=== PATIENT | male | born 1960 | race Caucasian/White ===

== ENCOUNTER 2017-09-28 10:59 | Emergency (ER) | payer OTHER, SELFPAY ==
[2017-09-28 11:00] VITALS: BP 159/75; RESP 16; TEMP 37.2; O2SAT 96; BMI 36.9
--- NOTE | 2017-09-28 11:07 | XR_ITS ---
XR chest 2V COMPARISON: None HISTORY: Persistent cough TECHNIQUE: PA and lateral chest FINDINGS: Borderline emphysematous changes seen with hyperexpansion of the lung rucker. There is no infiltrate. Cardiac size is normal and the vascularity is normal. There are calcified right tracheal and subcarinal nodes. IMPRESSION: Old granulomatous disease, no acute chest pathology noted
--- NOTE | 2017-09-28 11:08 | HMH.EDGENADL ---
ED Disposition Clinical Impression: Cervical radicular pain Disposition: Home, Self-Care Condition on Discharge: Good Instructions: DI for Cervical Radiculopathy Additional Instructions: Additional instructions for NECK PAIN: See your physician as soon as possible for further evaluation. Return immediately if neck pain becomes intolerable, or if fever, numbness or weakness of your arms or legs, loss of control of your bowels or bladder. Additional instructions for CHEST PAIN: See your physician as soon as possible for further evaluation. Return immediately if worsening chest pain, vomiting, shortness of breath, fever, coughing of blood. Prescriptions: Hydrocod/Acet 5/325 mg [[place] 5/325mg tablet] 1 tab PO Q6HP PRN #10 tab PRN Reason: Pain Per Pt (Boiling Off Winder Use Only) predniSONE [Prednisone 20mg Tab] 20 mg PO BID #10 tab Referrals: Falguni Trejo PA [Primary Care Provider] - - Critical Care Critical Care Time: No Attestation: On , the high probability of a clinically significant, sudden or life threatening deterioration of the following system(s) required my full and direct attention, intervention and personal management. The time I documented below is in addition to time spent performing reported procedures but includes the following listed in this critical care notation. Medical Decision Making Vital Signs: 09/28/17 11:00 09/28/17 12:16 Temperature 98.9 F Temperature Source Oral Pulse Rate 63 Respiratory Rate 16 18 Blood Pressure 111/70 Blood Pressure [Right Arm] 159/75 Blood Pressure Mean [Right Arm] 103 Blood Pressure Source Automatic Cuff Blood Pressure Source [Right Arm] Automatic Cuff Blood Pressure Position Sitting Blood Pressure Position [Right Arm] Sitting 02 Sat by Pulse Oximetry 96 Oxygen Delivery Method Room Air Room Air - Lab Data Lab results reviewed: Yes: I reviewed the patient's lab results. Lab Results 09/28/17 11:10: WBC 10.5, RBC 5.13, Hgb 14.6, Hct 46.9, MCV 91.4, MCH 28.5, MCHC 31.2 L, RDW 13.9, Plt Count 240, MPV 6.7 L, Neut % (Auto) 79.3, Lymph % (Auto) 10.8, [place] % (Auto) 6.7, Eos % (Auto) 2.7, Baso % (Auto) 0.5, Neut # (Auto) 8.4 H, Lymph # (Auto) 1.1, [place] # (Auto) 0.7, Eos # (Auto) 0.3, Baso # (Auto) 0.1 09/28/17 11:10: Sodium 140, Potassium 4.3, Chloride 106, Carbon Dioxide 29, Anion Gap 9.3, BUN 13, Creatinine 0.98, Estimated Creat Clear 167, Estimated GFR 78, Est GFR ( Amer) 95, Glucose 106, Calcium 8.9, Total Bilirubin 0.3, AST 16, ALT 24, Alkaline Phosphatase 80, Total Creatine Kinase 56, CK-MB (CK-2) 1.2, CK-MB (CK-2) Rel Index 2.1, Troponin I < 0.02, Total Protein 7.2, Albumin 3.4, Globulin 3.8 H, Albumin/Globulin Ratio 0.9 L 09/28/17 11:40: PT 28.2 H, INR 2.59 H Result diagrams: 09/28/17 11:10 09/28/17 11:10 Orders (Tests/Meds): ED MEDICATIONS Discontinued Medications Generic Name Dose Route Start Last Admin Trade Name Freq PRN Reason Stop Dose Admin Methylprednisolone Sodium Succinate 125 mg 09/28/17 11:23 09/28/17 11:37 Solu-Medrol 125mg/2ml Vial IV 09/28/17 11:24 125 mg ONCE ONE Administration Morphine Sulfate 4 mg 09/28/17 11:23 09/28/17 11:37 Morphine 4mg/Ml Syringe IV 09/28/17 11:24 4 mg ONCE ONE Administration Ondansetron HCl 4 mg 09/28/17 11:23 09/28/17 11:37 Zofran 4mg/2ml Vial IV 09/28/17 11:24 4 mg ONCE ONE Administration - Radiology Data #1 Image(s): Chest Image Reviewed: Yes I reviewed the patient's radiology results Preliminary Findings: Normal/NAD calcified hilar nodes - ECG Data Tracing #1 EKG interpreted by Naga Carreno MD: Rhythm: Atrial fibrillation Rate: 89 [place]: normal Ectopy: Unifocal PVCs versus aberrant conduction and a trigeminal frequency Conduction: normal ST Segment Changes: none T Wave Changes: none Q Waves: none No evidence of acute ischemia or injury No prior EKGs available for comparison - Jose Cruz Inquiry Pt receivi
[2017-09-28 11:31] LABS: Basophils # 0.1 K/mm3 (0-0.2); Basophils % 0.5 % (0.1-2.0); Eosinophils # 0.3 K/mm3 (0.0-0.4); Eosinophils % 2.7 % (0.1-12.0); Hematocrit 46.9 % (42.0-52.0); Hemoglobin 14.6 g/dL (14.1-18.0); Lymphocytes # 1.1 K/mm3 (0.7-4.5); Lymphocytes % 10.8 K/mm3 (10-50); Mean Corpuscular HGB Conc 31.2 g/dL (31.8-35.4); Mean Corpuscular Hemoglobin 28.5 pg (27.0-31.2); Mean Corpuscular Volume 91.4 fl (80-94); Mean Platelet Volume 6.7 fl (7.4-10.4); Monocytes # 0.7 K/mm3 (0.1-1.0); Monocytes % 6.7 % (1.7-9.3); Neutrophils # 8.4 K/mm3 (1.8-7.8); Neutrophils % 79.3 % (37.0-80.0); Platelet Count 240 K/mm3 (142-424); Red Blood Count 5.13 M/mm3 (4.60-6.20); Red Cell Distribution Width 13.9 % (11.5-17.5); White Blood Count 10.5 K/mm3 (4.8-10.8)
[2017-09-28 11:52] LABS: Alanine Aminotransferase 24 U/L (12-78); Albumin Level 3.4 gm/dL (3.4-5.0); Albumin/Globulin Ratio 0.9 (1.1-1.8); Alkaline Phosphatase 80 U/L (46-116); Anion Gap 9.3 mEq/L (5-15); Aspartate Amino Transferase 16 U/L (15-37); Bilirubin,Total 0.3 mg/dL (0.2-1.0); Blood Urea Nitrogen 13 mg/dL (7-18); CKMB Relative Index 2.1 U/L (0-4.0); Calcium 8.9 mg/dL (8.5-10.1); Carbon Dioxide 29 mmol/L (21.0-32.0); Chloride 106 mmol/L (98-107); Creatine Kinase 56 U/L (39-308); Creatine Kinase MB 1.2 mg/ml (0.0-3.6); Creatinine Clearance Estimated 167 mL/min (0-300); Creatinine,Serum 0.98 mg/dL (0.70-1.30); Estimated Glomerular Filt Rate 78 ml/min (>60); GFR (African American) 95 ML/MIN (>60); Globulin 3.8 gm/dl (1.3-3.2); Glucose 106 mg/dL (74-106); Potassium 4.3 mmoL/L (3.5-5.1); Sodium 140 mmol/L (136-145); Total Protein,Serum 7.2 gm/dL (6.4-8.2); Troponin I < 0.02 ng/ml (0.00-0.06)
[2017-09-28 11:55] LABS: INR 2.59 (0.9-1.1); Prothrombin Time 28.2 seconds (9.4-11.8)
[2017-09-28 12:16] VITALS: BP 111/70; PULSE 63; RESP 18; O2SAT 98
== END 2017-09-28 12:23 | disposition home or self-care (01) ==
PROVIDERS: Emergency Provider Emergency Medicine; PCP Physician Assistant
DX: M54.12 Radiculopathy, cervical region (principal); I48.91 Unspecified atrial fibrillation; J44.9 Chronic obstructive pulmonary disease, unspecified; Z79.01 Long term (current) use of anticoagulants; F41.9 Anxiety disorder, unspecified; F17.210 Nicotine dependence, cigarettes, uncomplicated
CPT/HCPCS: 71046; 80053; 82550; 82553; 84484; 85025; 85610; 93005; 93041; 96374; 96375; 99284; J2405

== ENCOUNTER → 2017-10-10 09:32 | Outpatient (CLI) | payer OTHER, SELFPAY ==
--- NOTE | 2017-10-10 09:36 | XR_ITS ---
EXAM: XR cervical spine 4V HISTORY: ITS.REASON: Neck pain ORDERING PHYSICIAN: REILLY Santos PATIENT AGE: 57 years COMPARISON: None FINDINGS: There is normal alignment. Moderate to severe degenerative disc disease is present from C3 to C7 small endplate osteophytes worse at C3-C4 and C6-C7. Mild left foraminal narrowing noted at C3-C4 and mild right foraminal narrowing at C3-C4. No fracture or dislocation. No lytic or blastic change. IMPRESSION: Cervical spondylosis with degenerative disc disease along with foraminal narrowing on the left at C3-C4 and to a lesser degree on the right at C3-C4
--- NOTE | 2017-10-10 09:36 | XR_ITS ---
EXAM: XR lumbar spine min 4V HISTORY: ITS.REASON: Low back pain ORDERING PHYSICIAN: REILLY Santos PATIENT AGE: 57 years COMPARISON: None FINDINGS: There is minimal lumbar curvature convex right. Degenerative disc disease is present at L5-S1 is straightening of the lumbar lordosis. There are mild facet arthritic changes at L4-L5 and L5-S1. Incidental abdominal aortic calcifications are present. There is a mild amount retained colonic feces. IMPRESSION: Lumbar spondylosis with degenerative disc disease and facet arthritic changes described above.
== END ==
PROVIDERS: PCP Physician Assistant; Visit Provider Physician Assistant
DX: M48.02 Spinal stenosis, cervical region (principal); M51.16 Intervertebral disc disorders with radiculopathy, lumbar region
CPT/HCPCS: 72050; 72110

== ENCOUNTER → 2017-10-11 09:48 | Outpatient (CLI) | payer OTHER, SELFPAY ==
--- NOTE | 2017-10-11 09:50 | MR_ITS ---
MR lumbar spine wo con HISTORY: Low back pain, lumbar stenosis, altered gait, right-sided low back pain and numbness in the right foot ORDERING PHYSICIAN: REILLY Santos PATIENT AGE: 57 years COMPARISON: Radiograph of 10/10/2017 TECHNIQUE: Standard multiplanar multiecho sequences are performed without contrast. 3-D MIP and myelographic images are also rendered and reviewed FINDINGS: There is normal alignment. The spinal cord ends at the L1 level. Multilevel lumbar spondylosis is present as outlined below. T12-L1: Mild disc desiccation. L1-L2: Mild facet and ligamentum hypertrophy. L2-L3: Mild disc desiccation with minimal bulging disc and 2 mm anterolisthesis of L2 with facet and ligamentum hypertrophy with bilateral lateral recess and mild bilateral foraminal narrowing. Mild narrowing of the canal. There is a rounded 15 mm T2 hyperintensity at L2 vertebral body habitus somewhat stippled appearance likely related to a hemangioma L3-L4: Mild bulging disc with mild facet and ligamentum flavum hypertrophy with mild bilateral foraminal narrowing. The disc is slightly eccentric toward the right. L4-L5: Mild bulging disc along with facet and ligamentum flavum hypertrophy with bilateral foraminal narrowing slightly greater on the right. L5-S1: Degenerative disc disease with bulging disc. There is mild retrolisthesis of L5 x 5 mm. There is facet and ligamentum flavum hypertrophy with moderate bilateral foraminal narrowing slightly greater on the left. The bulging disc is slightly eccentric toward the left. No disc herniation evident. IMPRESSION: Multilevel lumbar spondylosis with degenerative disc disease, bulging disc, and facet and ligamentum flavum hypertrophy with foraminal narrowing and lateral recess narrowing as described above. Please see above for detailed description at each level. There is mild narrowing of the canal at L2-L3 No disc herniation
--- NOTE | 2017-10-11 09:50 | MR_ITS ---
MR cervical spine wo con, MR 3-d myelogram/MRCP HISTORY: Neck pain, arm numbness, limited range of motion of neck, shooting pain down left side ORDERING PHYSICIAN: REILLY Santos PATIENT AGE: 57 years COMPARISON: Cervical spine of 10/10/2017 TECHNIQUE: Standard multiplanar multiecho sequences are performed without contrast. 3-D MIP and myelographic images are also rendered and reviewed FINDINGS: The craniocervical junction has an unremarkable appearance. C2-C3: Unremarkable. C3-C4: Severe degenerative disc disease with bulging discs with endplate osteophytes slightly eccentric toward the right with moderate right foraminal narrowing and mild right lateral recess narrowing. C4-C5: Degenerative disc disease with bulging disc and small broad-based central disc protrusion with borderline canal stenosis. No cord impingement. C5-C6: Degenerative disc disease with mild bulging disc C6-C7: Degenerative disc disease with bulging disc and endplate osteophytes somewhat eccentric to the right with right-sided foraminal narrowing. C7-T1 unremarkable. IMPRESSION: Multilevel lumbar spondylosis with degenerative disc disease, bulging disc, and endplate osteophytes with foraminal narrowing. Please see above for detailed description at each level. No disc herniation or central canal stenosis
== END ==
PROVIDERS: PCP Physician Assistant; Visit Provider Physician Assistant
DX: M48.02 Spinal stenosis, cervical region (principal); M51.16 Intervertebral disc disorders with radiculopathy, lumbar region; Z98.1 Arthrodesis status
CPT/HCPCS: 72141; 72148; 76376

== ENCOUNTER 2017-10-14 13:31 | Outpatient (RCR) | payer OTHER, SELFPAY ==
--- NOTE | 2017-10-14 15:28 | HMH.PTOPEV ---
Rehab Outpatient Evaluation Rehab OP Evaluation Start: 10/14/17 13:40 Freq: Status: Active Protocol: Document 10/14/17 14:40 PHORNE (Rec: 10/14/17 15:27 PHORNE [id number]) Electronically Signed By Yeison Kaye, PT 10/14/17 14:40 Outpatient Therapy Subjective History Subjective History Pt presents with c/o pain in left side low back x > 20 yrs with left LE symptoms to knee distally and now with sudden, insidious onset of neck pain ~ 2-3 wks ago. Pt reports he has had 3 similar episodes in the past that were sudden onset, sharp pain that took my breath and required ED visits. He reports feeling less pain over the past 2 days , but continues to have difficulty moving his head. PMH: 2 lumbar spine surgeries with possible partial discectomy at L5, A-fib, HTN, gastric ulcers, COPD, PTSD. Chief Complaint Pain Stiff Symptom Type Ache Sharp Dull Stabbing Symptoms Relieved By Rest/Positioning Symptoms Aggravated By Standing Bending/Stooping Physical Activity Walking Prior Functional Limitations None Current Functional Limitations Reaching Lifting Sleeping Walking Bending/Stooping Symptom Description Intermittent Activity Dependent Level of pain today (0-10) 0 Pain scale - at its worst (0-10) 10 Cervical Eval Palpation Cervical Muscles R Cervical Paraspinal L Cervical Paraspinal Cervical/Thoracic Palpation Findings Tenderness Posture Head/C-Spine Posture Sitting Position Flexed Flexibility Deficits Upper Trapezius Muscle Length (L) Moderate Tightness Levaetor Scapulae Muscle Length (L) Moderate Tightness Passive Joint Mobility Cervical PIVM Dec: R C2/3 L C2/3 R C3/4 L C3/4 R C4/5
== END 2017-10-14 13:32 | disposition home or self-care (01) ==
LOC: PT 13:31
PROVIDERS: PCP Physician Assistant; Visit Provider Emergency Medicine
DX: M48.02 Spinal stenosis, cervical region (principal); M51.16 Intervertebral disc disorders with radiculopathy, lumbar region; Z98.1 Arthrodesis status

== ENCOUNTER → 2017-10-28 08:26 | Outpatient (CLI) | payer OTHER, SELFPAY ==
--- NOTE | 2017-10-28 16:17 | XR_ITS ---
XR foot LT min 3V HISTORY: ITS.REASON: B/L FOOT PAIN ORDERING PHYSICIAN: Felicia Alvarez DPM PATIENT AGE: 57 years COMPARISON: None FINDINGS: Weightbearing views are performed. No fracture or dislocation. No lytic or blastic change. There is normal mineralization.. There are mild osteoarthritic changes of the first metatarsophalangeal joint. There is moderate pes planus with mild anterior subluxation of the navicular on the talus with hypertrophic changes of the talonavicular joint. IMPRESSION: Pes planus with hypertrophic change at the talonavicular joint Osteoarthritic change first metatarsophalangeal joint
--- NOTE | 2017-10-28 16:17 | XR_ITS ---
XR foot RT min 3V HISTORY: ITS.REASON: CHRONIC RIGHT FOOT WOUND, SKIN CHANGES, B/L FOOT PAIN ORDERING PHYSICIAN: Felicia Alvarez DPM PATIENT AGE: 57 years COMPARISON: None FINDINGS: Weightbearing views are performed. There is moderate pes planus with mild anterior subluxation of the navicular on the talus and hypertrophic changes of the anterior distal talus. No fracture or dislocation is evident. Flexion deformity involves the second through fourth toes. No obvious erosive change evident. IMPRESSION: Pes planus with flexion deformity of the second through fourth toes
== END ==
PROVIDERS: Visit Provider Podiatrist
DX: M79.671 Pain in right foot (principal); M79.672 Pain in left foot; M19.072 Primary osteoarthritis, left ankle and foot; M19.071 Primary osteoarthritis, right ankle and foot; L97.512 Non-pressure chronic ulcer of other part of right foot with fat layer exposed
CPT/HCPCS: 36415; 73630; 83036

== ENCOUNTER 2017-10-30 09:17 | Outpatient (CLI) | payer OTHER, SELFPAY ==
[2017-10-30 15:10] LABS: PHA INR Fingerstick 2.3 (0.9-1.1)
== END 2017-10-30 15:18 | disposition home or self-care (01) ==
LOC: ACC 09:18
PROVIDERS: PCP Physician Assistant; Visit Provider Physician Assistant
DX: I48.91 Unspecified atrial fibrillation (principal)
CPT/HCPCS: 85610

== ENCOUNTER → 2017-11-05 11:21 | Outpatient (REF) | payer OTHER, SELFPAY ==
[2017-11-05 20:22] LABS: Amphetamine/Metha Screen,Urine Negative ng/mL (<1000); Barbiturates Screen,Urine Negative ng/mL (<200); Benzodiazepines Screen,Urine Negative ng/mL (200); Cannabinoid Screen,Urine Negative ng/mL (<50); Cocaine Screen,Urine Negative ng/g (<300); Methadone Screen,Urine Negative ng/mL (<300); Opiate Screen,Urine Negative ng/mL (<300); Phencyclidine Screen,Urine Negative ng/mL (<25)
== END ==
LOC: LAB 11:21
PROVIDERS: Visit Provider Physician Assistant
DX: Z79.899 Other long term (current) drug therapy (principal)
CPT/HCPCS: 80305; 87070; 87077; 87186; 87205

== ENCOUNTER → 2017-11-05 12:49 | Outpatient (POV) | payer OTHER, SELFPAY ==
[2017-11-05 13:05] VITALS: BP 107/76; PULSE 89; RESP 18; TEMP 36.9; O2SAT 97; BMI 38.1
--- NOTE | 2017-11-05 14:31 | HMH.PMCON ---
Assessment and Plan (1) Sacroiliitis Current visit: Yes Status: Chronic Category: Medical Code(s): M46.1 - Sacroiliitis, not elsewhere classified (2) Cervical radicular pain Current visit: No Status: Chronic Category: Medical Code(s): M54.12 - Radiculopathy, cervical region (3) Lumbar disc disease with radiculopathy Current visit: No Status: Chronic Category: Medical Code(s): M51.16 - Intervertebral disc disorders with radiculopathy, lumbar region (4) Spinal stenosis Current visit: No Status: Chronic Qualifiers: Spinal region: lumbar Neurogenic claudication status: without neurogenic claudication Qualified Code(s): M48.061 - Spinal stenosis, lumbar region without neurogenic claudication Category: Medical Code(s): M48.00 - Spinal stenosis, site unspecified (5) Lumbar post-laminectomy syndrome Problem details: Avoid narcotics due to patient's history and avoid NSAIDs due to coumadin. Tried injections and rhizotomies without relief and doesn't want a pain pump. Current visit: No Status: Chronic Category: Medical Code(s): M96.1 - Postlaminectomy syndrome, not elsewhere classified (6) Greater trochanteric bursitis of left hip Current visit: Yes Status: Chronic Category: Medical Code(s): M70.62 - Trochanteric bursitis, left hip - Assessment and plan all Dx Assessment and Plan for all problems:: We will move forward and schedule the patient for a left SI joint along with a left trochanteric bursa injection. It is unable to take anti-inflammatories due to cardiac conditions and peptic ulcer disease, patient's also utilized physical therapy with limited relief. I believe this will be very helpful for the patient and he will not have to come off of his anticoagulation therapy at this time. Patient is currently receiving medications from his PCP and he seems to be very appropriate in this at this time. We discussed him not wanting to utilize medications. We discussed multiple interventional therapies and even future interventions that may be possible for this patient. I would like to receive Dr. Corrigan note to see what he said about his surgical candidacy and if he gave any suggestions on his plan of care. Patient is currently getting cyclobenzaprine 10 mg [address] p[address] Corrigan. I stated that we would be more than happy to take over this prescription at the time of refill. This note was dictated using voice recognition software may contain errors or omissions HPI - Data of Consult Consult date: 11/05/17 Requesting Physician: Radha Parish APRN Primary Care Provider: REILLY Oconnor Family Provider: Falguni merchant - Consult Narrative Reason for consult: Neck pain, low back pain, left hip pain History of present illness: Mr. Muniz is a 57 year old male who presents today to discuss his pain in his neck, low back and left hip. Patient states that when he is sitting for too long this begins to flare. Patient has had back surgery in the past ?2. Also recently had a consult with Dr. Oliva and stated that he is not a current surgical candidate. Patient states he has no pain today rating it a 0 out of 10. He does flareup with weather he says. Patient has had epidural and facet joints back in 1997 with minimal relief. These injections were not done under fluoroscopy at the time. Patient is going to get a TENS unit today to see if that helps relieve some of his pain. He has a history of overuse of prescription medication. He states he is very aware of the risks of this. He would like to stay away from medication as much as possible. 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 Patient is also having a lot of tenderness over his SI joint in his left hip he uses a cane for stability. Patient has chronic A. fib and he is on 12-1/2 mg of warfarin a day. Patient was prescribed cyclobenzaprine 10 mg [address] p[address] Corrigan and he states christal
--- NOTE | 2017-11-05 14:35 | P.CONS_ITS ---
Assessment and Plan (1) Sacroiliitis Current visit: Yes Status: Chronic Category: Medical Code(s): M46.1 - Sacroiliitis, not elsewhere classified (2) Cervical radicular pain Current visit: No Status: Chronic Category: Medical Code(s): M54.12 - Radiculopathy, cervical region (3) Lumbar disc disease with radiculopathy Current visit: No Status: Chronic Category: Medical Code(s): M51.16 - Intervertebral disc disorders with radiculopathy, lumbar region (4) Spinal stenosis Current visit: No Status: Chronic Qualifiers: Spinal region: lumbar Neurogenic claudication status: without neurogenic claudication Qualified Code(s): M48.061 - Spinal stenosis, lumbar region without neurogenic claudication Category: Medical Code(s): M48.00 - Spinal stenosis, site unspecified (5) Lumbar post-laminectomy syndrome Problem details: Avoid narcotics due to patient's history and avoid NSAIDs due to coumadin. Tried injections and rhizotomies without relief and doesn't want a pain pump. Current visit: No Status: Chronic Category: Medical Code(s) : M96.1 - Postlaminectomy syndrome, not elsewhere classified (6) Greater trochanteric bursitis of left hip Current visit: Yes Status: Chronic Category: Medical Code(s): M70.62 - Trochanteric bursitis, left hip - Assessment and plan all Dx Assessment and Plan for all problems:: We will move forward and schedule the patient for a left SI joint along with a left trochanteric bursa injection. It is unable to take anti-inflammatories due to cardiac conditions and peptic ulcer disease, patient's also utilized physical therapy with limited relief. I believe this will be very helpful for the patient and he will not have to come off of his anticoagulation therapy at this time. Patient is currently receiving medications from his PCP and he seems to be very appropriate in this at this time. We discussed him not wanting to utilize medications. We discussed multiple interventional therapies and even future interventions that may be possible for this patient. I would like to receive Dr. Corrigan note to see what he said about his surgical candidacy and if he gave any suggestions on his plan of care. Patient is currently getting cyclobenzaprine 10 mg [address] p[address] Corrigan. I stated that we would be more than happy to take over this prescription at the time of refill. This note was dictated using voice recognition software may contain errors or omissions HPI - Data of Consult Consult date: 11/05/17 Requesting Physician: Radha Parish APRN Primary Care Provider: REILLY Oconnor Family Provider: Falguni merchant - Consult Narrative Reason for consult: Neck pain, low back pain, left hip pain History of present illness: Mr. Muniz is a 57 year old male who presents today to discuss his pain in his neck, low back and left hip. Patient states that when he is sitting for too long this begins to flare. Patient has had back surgery in the past ?2. Also recently had a consult with Dr. Oliva and stated that he is not a current surgical candidate. Patient states he has no pain today rating it a 0 out of 10. He does flareup with weather he says. Patient has had epidural and facet joints back in 1997 with minimal relief. These injections were not done under fluoroscopy at the time. Patient is going to get a TENS unit today to see if that helps relieve some of his pain. He has a history of overuse of prescription medication. He states he is very aware of the risks of this. He would like to stay away from medication as much as possible. Patient w
== END ==
PROVIDERS: PCP Physician Assistant; Visit Provider Clinical Nurse Specialist Family Health
DX: M48.061 Spinal stenosis, lumbar region without neurogenic claudication (principal)
CPT/HCPCS: 99202

== ENCOUNTER 2017-11-27 09:54 | Outpatient (CLI) | payer OTHER, SELFPAY ==
[2017-11-27 13:10] LABS: PHA INR Fingerstick 2.3 (0.9-1.1)
== END 2017-11-27 13:12 | disposition home or self-care (01) ==
LOC: ACC 09:55
PROVIDERS: PCP Physician Assistant; Visit Provider Physician Assistant
DX: Z79.01 Long term (current) use of anticoagulants (principal); Z51.81 Encounter for therapeutic drug level monitoring; I48.91 Unspecified atrial fibrillation
CPT/HCPCS: 85610; 99211; G0463

== ENCOUNTER 2017-12-06 13:52 | Day surgery (SDC) | payer OTHER, SELFPAY ==
[2017-12-06 14:13] VITALS: BP 131/70; PULSE 117; RESP 20; TEMP 36.9; O2SAT 95; BMI 38.1
[2017-12-06 14:57] VITALS: BP 188/80; PULSE 85; RESP 18
[2017-12-06 14:58] VITALS: BP 188/89; PULSE 89; RESP 18
--- NOTE | 2017-12-06 14:58 | HMH.PMPROC ---
- Procedure Date: 12/06/17 Time: 14:58 Anesthesiologist:: Frank Peañloza MD Complications:: None Pre-procedure Diagnosis:: Sacroiliitis and trochanteric bursitis Post-procedure Diagnosis:: Same Indications for Procedure:: This patient is a pleasant 57-year-old white male who we are seeing for left-sided hip pain. He is tender over the left SI joint and left trochanteric bursa. He does have a positive Akira's test on left side. Today we will do a left SI joint injection left trochanteric bursa injection under fluoroscopy. Procedure Details:: Left SI joint injection under fluoroscopy Informed consent was obtained and the risks and benefits of the procedure was going to the patient. Patient was taken to the procedure room. Patient was placed prone on the procedure table. The left hip was prepped using ChloraPrep. The skin and subcutaneous tissues were anesthetized using lidocaine. I placed a 22-gauge spinal needle into the inferior aspect of the left SI joint. Needle placement was confirmed with dye. After this we injected 5 mL bupivacaine 0.25% and Depo-Medrol 40 mg into the left SI joint. The patient tolerated the procedure well with no complications. Left trochanteric bursa injection under fluoroscopy The left hip was prepped using ChloraPrep. The skin and cutaneous tissues were anesthetized using lidocaine. I placed a 22-gauge spinal needles into the left hip and advanced until it contacted left greater trochanter. Needle placement was confirmed with dye. After this we injected 5 mL bupivacaine 0.25% and Depo-Medrol 40 mg into the left trochanteric bursa. The patient tolerated the procedure well with no complications. Plan and Disposition:: We will follow-up with this patient in 2 weeks. We will reevaluate his symptoms at that time
--- NOTE | 2017-12-06 15:01 | P.PCN_ITS ---
- Procedure Date: 12/06/17 Time: 14:58 Anesthesiologist:: Frank Peñaloza MD Complications:: None Pre-procedure Diagnosis:: Sacroiliitis and trochanteric bursitis Post-procedure Diagnosis:: Same Indications for Procedure:: This patient is a pleasant 57-year-old white male who we are seeing for left- sided hip pain. He is tender over the left SI joint and left trochanteric bursa. He does have a positive Akira's test on left side. Today we will do a left SI joint injection left trochanteric bursa injection under fluoroscopy. Procedure Details:: Left SI joint injection under fluoroscopy Informed consent was obtained and the risks and benefits of the procedure was going to the patient. Patient was taken to the procedure room. Patient was placed prone on the procedure table. The left hip was prepped using ChloraPrep. The skin and subcutaneous tissues were anesthetized using lidocaine. I placed a 22-gauge spinal needle into the inferior aspect of the left SI joint. Needle placement was confirmed with dye. After this we injected 5 mL bupivacaine 0.25% and Depo-Medrol 40 mg into the left SI joint. The patient tolerated the procedure well with no complications. Left trochanteric bursa injection under fluoroscopy The left hip was prepped using ChloraPrep. The skin and cutaneous tissues were anesthetized using lidocaine. I placed a 22-gauge spinal needles into the left hip and advanced until it contacted left greater trochanter. Needle placement was confirmed with dye. After this we injected 5 mL bupivacaine 0.25% and Depo- Medrol 40 mg into the left trochanteric bursa. The patient tolerated the procedure well with no complications. Plan and Disposition:: We will follow-up with this patient in 2 weeks. We will reevaluate his symptoms at that time
[2017-12-06 15:08] VITALS: BP 124/55; PULSE 73; O2SAT 97
== END 2017-12-06 15:05 | disposition home or self-care (01) ==
PROVIDERS: PCP Physician Assistant; Visit Provider Anesthesiology
DX: M46.1 Sacroiliitis, not elsewhere classified (principal); M70.62 Trochanteric bursitis, left hip
CPT/HCPCS: 20610; 27096; G0260; J1030; Q9966

== ENCOUNTER → 2017-12-11 09:33 | Outpatient (CLI) | payer OTHER, SELFPAY ==
[2017-12-11 13:57] LABS: Amphetamine/Metha Screen,Urine Negative ng/mL (<1000); Barbiturates Screen,Urine Negative ng/mL (<200); Benzodiazepines Screen,Urine Negative ng/mL (200); Cannabinoid Screen,Urine Negative ng/mL (<50); Cocaine Screen,Urine Negative ng/g (<300); Methadone Screen,Urine Negative ng/mL (<300); Opiate Screen,Urine Positive ng/mL (<300); Phencyclidine Screen,Urine Negative ng/mL (<25)
== END ==
PROVIDERS: Visit Provider Physician Assistant
DX: M51.16 Intervertebral disc disorders with radiculopathy, lumbar region (principal)
CPT/HCPCS: 80305

== ENCOUNTER → 2017-12-23 12:50 | Outpatient (POV) | payer OTHER, SELFPAY ==
[2017-12-23 13:02] VITALS: BP 127/89; PULSE 72; RESP 16; TEMP 37; O2SAT 96; BMI 40.4
--- NOTE | 2017-12-23 13:07 | P.CONS_ITS ---
[facility] Pain Management SOAP Note Subjective:: Patient is a pleasant 57-year-old white male who presents today after a left SI and left trochanteric bursa injection. Patient rates his pain a 1 out of 10 today. He states he is 90% better after the injections. He has been doing very well and has been much more functional. Patient states he did have some stiffness after the injection however no pain. ROS General: no recent weight change, no fever, no sleep disturbances Respiratory: no cough, no shortness of air, no recurring pulmonary infections Cardiovascular/Peripheral Vascular: No chest pain, No palpitations, no edema, no shortness of breath. Gastrointestinal: no incontinence, normal bowel movements reported Genitourinary: no incontinence Musculoskeletal: Back pain, left hip pain Psychiatric: normal mood/ affect, Neurological: [denies weakness in extremities], [denies balance issues] Objective:: Physical Exam General: Alert and oriented x3, no acute distress, pleasant and cooperative, [ on room air] Lungs: Resps E/U, Symmetrical chest expansion, Eyes: PERRL Musculoskeletal: Flexion and extension of lumbar spine somewhat guarded secondary to pain, deep tendon reflexes normal, strength in upper and lower extremities [5/5], normal gait noted Neurological: speech clear, 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 This note was dictated using voice recognition software and may contain errors or omissions
== END ==
PROVIDERS: PCP Physician Assistant; Visit Provider Clinical Nurse Specialist Family Health
DX: M46.1 Sacroiliitis, not elsewhere classified (principal)
CPT/HCPCS: 99212

== ENCOUNTER → 2018-01-27 10:34 | Outpatient (CLI) | payer OTHER, SELFPAY ==
--- NOTE | 2018-01-27 10:35 | XR_ITS ---
XR foot wt bearing LT 3V HISTORY: ITS.REASON: pain ORDERING PHYSICIAN: Felicia Alvarez DPM PATIENT AGE: 57 years COMPARISON: None FINDINGS: Mild hypertrophic changes are present at the first metatarsophalangeal joint. There is pes planus. Hypertrophic changes involve the dorsal aspect of the navicular and medial cuneiform. Subcortical cystic changes involve the distal aspect of the mid cuneiform. IMPRESSION: Osteoarthritis of the first metatarsophalangeal joint along with hypertrophic changes of the mid foot and pes planus
--- NOTE | 2018-01-27 10:35 | XR_ITS ---
XR ankle wt bearing RT min 3V HISTORY: ITS.REASON: pain ORDERING PHYSICIAN: Felicia Alvarez DPM PATIENT AGE: 57 years COMPARISON: None FINDINGS: No fracture or dislocation. No lytic or blastic change. There is normal mineralization.. The joint spaces are well-preserved. No significant degenerative/arthritic changes. No erosive changes evident. Mild vascular calcification IMPRESSION: Negative ankle, no acute finding
--- NOTE | 2018-01-27 10:35 | XR_ITS ---
XR foot wt bearing RT 3V HISTORY: ITS.REASON: pain ORDERING PHYSICIAN: Felicia Alvarez DPM PATIENT AGE: 57 years COMPARISON: None FINDINGS: There is pes planus with hypertrophic changes along the dorsal aspect of the talus distally and along the navicular and mid cuneiform dorsally.. There is some calcification noted along the distal aspect of the talus dorsally. There is mild lateral angulation of the distal phalanx of the great toe No fracture, dislocation, or other significant anomalies IMPRESSION: Pes planus with hypertrophic changes dorsally of the midfoot
--- NOTE | 2018-01-27 10:35 | XR_ITS ---
XR ankle wt bearing LT min 3V CLINICAL INDICATION: ITS.REASON: pain ORDERING PHYSICIAN: Felicia Alvarez DPM PATIENT AGE: 57 years FINDINGS: No bony or joint abnormality. There is mild generalized vascular calcification. IMPRESSION: Negative left ankle
== END ==
PROVIDERS: Visit Provider Podiatrist
DX: M79.672 Pain in left foot (principal); M79.671 Pain in right foot
CPT/HCPCS: 73610; 73630

== ENCOUNTER → 2018-02-07 10:11 | Outpatient (POV) | payer OTHER, SELFPAY | PROVIDERS: Visit Provider Podiatrist | DX: Z00.00 Encounter for general adult medical examination without abnormal findings (principal) ==

== ENCOUNTER → 2018-03-28 11:07 | Outpatient (POV) | payer OTHER, SELFPAY | PROVIDERS: Visit Provider Podiatrist | DX: Z00.00 Encounter for general adult medical examination without abnormal findings (principal) ==

== ENCOUNTER → 2018-03-31 13:26 | Outpatient (POV) | payer OTHER, SELFPAY ==
[2018-03-31 13:38] VITALS: BP 132/91; PULSE 100; RESP 18; O2SAT 98; BMI 41.0
--- NOTE | 2018-03-31 13:49 | HMH.PAINSOAP ---
[facility] Pain Management SOAP Note Subjective:: The patient is a pleasant 57-year-old white male who presents today for follow-up. Patient had a left SI joint injection in the left trochanteric bursa injection back in November. Patient done extremely well until very recently. He rates pain a 4 out of 10 today. He got 90% relief with his injection for over 3 months. He would like to repeat this due to the increase of pain. Patient states he is much more functional after the injections. ROS General: no recent weight change, no fever, no sleep disturbances Respiratory: no cough, no shortness of air, no recurring pulmonary infections Cardiovascular/Peripheral Vascular: No chest pain, No palpitations, no edema, no shortness of breath. Gastrointestinal: no incontinence, normal bowel movements reported Genitourinary: no incontinence Musculoskeletal:back Pain, left hip pain Psychiatric: normal mood/ affect Neurological: [denies weakness in extremities], [denies balance issues] Objective:: Physical Exam General: Alert and oriented x3, no acute distress, pleasant and cooperative, [on room air] Lungs: Resps E/U, Symmetrical chest expansion, Eyes: PERRL Musculoskeletal: Flexion and extension of lumbar spine somewhat guarded secondary to pain, deep tendon reflexes normal, strength in upper and lower extremities [5/5], slightly antalgic gait noted, positive Akira's test on the left side, extreme point tenderness over left SI joint and left greater trochanteric bursa Neurological: speech clear, verification manager equal, no gross sensory deficits Assessment:: Sacroiliitis, trochanteric bursa Plan:: We will schedule a left SI joint injection in the left trochanteric bursa injection for this patient I believe that given the efficacy of his last injection it will be very beneficial for his increase functionality and pain relief. I will follow-up with this patient after his injection. This note was dictated using voice recognition software and may contain errors or omissions
--- NOTE | 2018-03-31 13:53 | P.CONS_ITS ---
[facility] Pain Management SOAP Note Subjective:: The patient is a pleasant 57-year-old white male who presents today for follow- up. Patient had a left SI joint injection in the left trochanteric bursa injection back in November. Patient done extremely well until very recently. He rates pain a 4 out of 10 today. He got 90% relief with his injection for over 3 months. He would like to repeat this due to the increase of pain. Patient states he is much more functional after the injections. ROS General: no recent weight change, no fever, no sleep disturbances Respiratory: no cough, no shortness of air, no recurring pulmonary infections Cardiovascular/Peripheral Vascular: No chest pain, No palpitations, no edema, no shortness of breath. Gastrointestinal: no incontinence, normal bowel movements reported Genitourinary: no incontinence Musculoskeletal:back Pain, left hip pain Psychiatric: normal mood/ affect Neurological: [denies weakness in extremities], [denies balance issues] Objective:: Physical Exam General: Alert and oriented x3, no acute distress, pleasant and cooperative, [ on room air] Lungs: Resps E/U, Symmetrical chest expansion, Eyes: PERRL Musculoskeletal: Flexion and extension of lumbar spine somewhat guarded secondary to pain, deep tendon reflexes normal, strength in upper and lower extremities [5/5], slightly antalgic gait noted, positive Akira's test on the left side, extreme point tenderness over left SI joint and left greater trochanteric bursa Neurological: speech clear, manager analysis equal, no gross sensory deficits Assessment:: Sacroiliitis, trochanteric bursa Plan:: We will schedule a left SI joint injection in the left trochanteric bursa injection for this patient I believe that given the efficacy of his last injection it will be very beneficial for his increase functionality and pain relief. I will follow-up with this patient after his injection. This note was dictated using voice recognition software and may contain errors or omissions
== END ==
PROVIDERS: PCP Physician Assistant; Visit Provider Clinical Nurse Specialist Family Health
DX: M46.1 Sacroiliitis, not elsewhere classified (principal)
CPT/HCPCS: 99212

== ENCOUNTER 2018-04-02 13:47 | Outpatient (CLI) | payer OTHER, SELFPAY ==
[2018-04-02 15:32] LABS: PHA INR Fingerstick 3.3 (0.9-1.1)
[2018-04-02 18:41] LABS: Amphetamine/Metha Screen,Urine Negative ng/mL (<1000); Barbiturates Screen,Urine Negative ng/mL (<200); Benzodiazepines Screen,Urine Negative ng/mL (<200); Cannabinoid Screen,Urine Negative ng/mL (<50); Cocaine Screen,Urine Negative ng/mL (<300); Methadone Screen,Urine Negative ng/mL (<300); Opiate Screen,Urine Positive ng/mL (<300); Phencyclidine Screen,Urine Negative ng/mL (<25)
== END 2018-04-02 16:20 | disposition home or self-care (01) ==
LOC: LAB 14:31 → ACC 14:56
PROVIDERS: PCP Physician Assistant; Visit Provider Physician Assistant
DX: Z79.899 Other long term (current) drug therapy (principal); Z79.01 Long term (current) use of anticoagulants; Z51.81 Encounter for therapeutic drug level monitoring
CPT/HCPCS: 80305; 85610; 99211; G0463

== ENCOUNTER 2018-04-11 09:39 | Outpatient (CLI) | payer OTHER, SELFPAY ==
[2018-04-11 14:24] LABS: PHA INR Fingerstick 2.3 (0.9-1.1)
== END 2018-04-11 14:27 | disposition home or self-care (01) ==
LOC: ACC 09:41
PROVIDERS: PCP Physician Assistant; Visit Provider Physician Assistant
DX: Z79.01 Long term (current) use of anticoagulants (principal); Z51.81 Encounter for therapeutic drug level monitoring
CPT/HCPCS: 85610; 99211; G0463

== ENCOUNTER → 2018-05-06 10:10 | Outpatient (POV) | payer OTHER, SELFPAY ==
[2018-05-06 10:31] VITALS: BP 150/80; PULSE 80; RESP 18; O2SAT 97; BMI 40.4
--- NOTE | 2018-05-06 10:55 | P.CONS_ITS ---
[facility] Pain Management SOAP Note Subjective:: Patient is a pleasant 58-year-old male who presents today for follow-up after left SI joint and left greater trochanteric bursa injection. Patient is doing well. 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 Mcgregor. Patient states he is doing well with this as well. He rates his pain a 1 out of 10 today. Patient would like to follow-up in 2 months. ROS General: no recent weight change, no fever, no sleep disturbances Respiratory: no cough, no shortness of air, no recurring pulmonary infections Cardiovascular/Peripheral Vascular: No chest pain, No palpitations, no edema, no shortness of breath. Gastrointestinal: no incontinence, normal bowel movements reported Genitourinary: no incontinence Musculoskeletal: Left hip pain at times Psychiatric: normal mood/ affect Neurological: [denies weakness in extremities], [denies balance issues] Objective:: Physical Exam General: Alert and oriented x3, no acute distress, pleasant and cooperative, [ on room air] Lungs: Resps E/U, Symmetrical chest expansion, Eyes: PERRL Musculoskeletal: Flexion and extension of lumbar spine somewhat guarded secondary to pain, deep tendon reflexes normal, strength in upper and lower extremities [5/5], [abnormal gait noted] Neurological: speech clear, teacher equal, no gross sensory deficits Assessment:: Sacroiliitis and trochanteric bursitis Plan:: We will follow-up with this patient in 2 months. Patient's been instructed to call the office if he has any issues prior to his next appointment. This note was dictated using voice recognition software and may contain errors or omissions
== END ==
PROVIDERS: PCP Physician Assistant; Visit Provider Clinical Nurse Specialist Family Health
DX: M46.1 Sacroiliitis, not elsewhere classified (principal); M70.62 Trochanteric bursitis, left hip
CPT/HCPCS: 99213

== ENCOUNTER 2018-05-26 11:42 | Outpatient (CLI) | payer OTHER, SELFPAY ==
[2018-05-26 14:22] LABS: PHA INR Fingerstick 3.7 (0.9-1.1)
== END 2018-05-26 14:24 | disposition home or self-care (01) ==
LOC: ACC 11:43
PROVIDERS: PCP Physician Assistant; Visit Provider Physician Assistant
DX: Z51.81 Encounter for therapeutic drug level monitoring (principal); Z79.01 Long term (current) use of anticoagulants; I48.91 Unspecified atrial fibrillation
CPT/HCPCS: 85610; 99211; G0463

== ENCOUNTER 2018-06-09 10:50 | Outpatient (CLI) | payer OTHER, SELFPAY ==
[2018-06-09 13:47] LABS: PHA INR Fingerstick 3.1 (0.9-1.1)
== END 2018-06-09 14:38 | disposition home or self-care (01) ==
LOC: ACC 10:51
PROVIDERS: PCP Physician Assistant; Visit Provider Physician Assistant
DX: Z51.81 Encounter for therapeutic drug level monitoring (principal); Z79.01 Long term (current) use of anticoagulants; I48.91 Unspecified atrial fibrillation
CPT/HCPCS: 85610; 99211; G0463

== ENCOUNTER 2018-06-30 10:42 | Outpatient (CLI) | payer OTHER, SELFPAY | END 2018-06-30 11:57 | disposition home or self-care (01) | LOC: ACC 10:43 | PROVIDERS: PCP Physician Assistant; Visit Provider Physician Assistant | DX: Z51.81 Encounter for therapeutic drug level monitoring (principal); Z79.01 Long term (current) use of anticoagulants; I48.91 Unspecified atrial fibrillation | CPT/HCPCS: 85610; 99211; G0463 ==

== ENCOUNTER → 2018-07-16 17:43 | Outpatient (CLI) | payer OTHER, SELFPAY ==
[2018-07-16 19:48] LABS: Amphetamine/Metha Screen,Urine Negative ng/mL (<1000); Barbiturates Screen,Urine Negative ng/mL (<200); Benzodiazepines Screen,Urine Negative ng/mL (<200); Cannabinoid Screen,Urine Positive ng/mL (<50); Cocaine Screen,Urine Negative ng/mL (<300); Methadone Screen,Urine Negative ng/mL (<300); Opiate Screen,Urine Negative ng/mL (<300); Phencyclidine Screen,Urine Negative ng/mL (<25)
== END ==
PROVIDERS: Visit Provider Physician Assistant
DX: Z79.899 Other long term (current) drug therapy (principal)
CPT/HCPCS: 80305

== ENCOUNTER → 2018-09-29 10:18 | Outpatient (POV) | payer OTHER, SELFPAY ==
[2018-09-29 10:29] VITALS: BP 116/93; PULSE 79; RESP 18; O2SAT 98; BMI 41.0
--- NOTE | 2018-09-29 10:40 | HMH.PAINSOAP ---
[facility] Pain Management SOAP Note Subjective:: Is a pleasant 58-year-old white male who presents today for follow-up. Patient has a history of sacroiliitis and bursitis. Patient is doing well rating his back and hip pain a 2 out of 10. Patient is recently started CBD oil and is doing well with this as well. Patient only complaint today is his left shoulder. Patient has had pain for quite some time. Patient used to get cortisone injections however he was told he had too many. Patient has not seen Orth [facility] in regards to this. ROS General: no recent weight change, no fever, no sleep disturbances Respiratory: no cough, no shortness of air, no recurring pulmonary infections Cardiovascular/Peripheral Vascular: No chest pain, No palpitations, no edema, no shortness of breath. Gastrointestinal: no incontinence, normal bowel movements reported Genitourinary: no incontinence Musculoskeletal: Left shoulder pain Psychiatric: normal mood/ affect Neurological: [denies weakness in extremities], [denies balance issues] Objective:: Physical Exam General: Alert and oriented x3, no acute distress, pleasant and cooperative, [on room air] Lungs: Resps E/U, Symmetrical chest expansion, Eyes: PERRL Musculoskeletal: Motion left shoulder somewhat guarded secondary to pain, deep tendon reflexes normal, strength in upper and lower extremities [5/5], slightly antalgic gait noted Neurological: 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 We will order left shoulder x-rays. This note was dictated using voice recognition software and may contain errors or omissions
--- NOTE | 2018-09-29 13:29 | PC.NURSE ---
PT NOTIFIED OF APPOINTMENT MADE WITH DR BRIONES FOR L SHOULDER PAIN. APPT IS Oct AT 10AM. PT V/U.
== END ==
PROVIDERS: PCP Physician Assistant; Visit Provider Clinical Nurse Specialist Family Health
DX: M25.512 Pain in left shoulder (principal); M46.1 Sacroiliitis, not elsewhere classified; M71.9 Bursopathy, unspecified
CPT/HCPCS: 99213

== ENCOUNTER → 2018-10-08 14:25 | Outpatient (CLI) | payer OTHER, SELFPAY ==
--- NOTE | 2018-10-08 14:27 | US_ITS ---
US Arterial Ankle Brachial Ind History: ITS.REASON: skin changes, slow healing wound bilateral claudication, bilateral skin changes ORDERING PHYSICIAN: Felicia Alvarez DPM PATIENT AGE: 58 years TECHNIQUE: Segmental pressures obtained of both right and left leg. These are compared to brachial blood pressure to yield index at each level sampled including summary EUGENIA. The data sheets from the procedure are available in PACS FINDINGS Rest study only performed today No prior studies available for comparison. Blood pressures reported are in millimeters mercury. RIGHT LEG EUGENIA = 0.7. RIGHT LEG TBI=1.2 Brachial BP: 120 Thigh BP: 124 Calf BP: >254 Ankle PT: >254 Ankle DP : 89 Digit =147 LEFT LEG EUGENIA = 1.3 LEFT LEG TBI= 0.9 Brachial BPD: 124 Thigh BP: 134 Calf BP: >254 Ankle PT:>254 Ankle DP: 162 Digit = 116 Pulses and waveforms: Diminished dorsalis pedis pulses bilaterally with normal waveforms IMPRESSION: 1. There are noncompressible ABIs at the posterior tibial bilaterally consistent with hardening of the arteries. 2. Right dorsalis pedis EUGENIA is low at 0.7 suggesting moderate peripheral vascular disease. 3. Left EUGENIA upper limits of normal at 1.3 4. Normal left TBI with a high right TBI is suggesting hardening of the small vessels on the left
--- NOTE | 2018-10-08 15:13 | XR_ITS ---
XR shoulder LT min 2V HISTORY: ITS.REASON: LT SHOULDER PAIN ORDERING PHYSICIAN: Felicia Alvarez DPM PATIENT AGE: 58 years Comparison: None FINDINGS: There are mild osteoarthritic changes of the acromioclavicular joint and glenohumeral joint. No fracture or dislocation. No significant subacromial stenosis. IMPRESSION: Mild osteoarthritis of the acromioclavicular and glenohumeral joint
== END ==
PROVIDERS: PCP Physician Assistant; Referring Provider Clinical Nurse Specialist Family Health; Visit Provider Podiatrist
DX: R09.89 Other specified symptoms and signs involving the circulatory and respiratory systems (principal); M25.512 Pain in left shoulder
CPT/HCPCS: 73030; 93922

== ENCOUNTER → 2018-10-14 17:50 | Outpatient (CLI) | payer OTHER, SELFPAY ==
[2018-10-14 20:06] LABS: Amphetamine/Metha Screen,Urine Negative ng/mL (<1000); Barbiturates Screen,Urine Negative ng/mL (<200); Benzodiazepines Screen,Urine Negative ng/mL (<200); Cannabinoid Screen,Urine Negative ng/mL (<50); Cocaine Screen,Urine Negative ng/mL (<300); Methadone Screen,Urine Negative ng/mL (<300); Opiate Screen,Urine Negative ng/mL (<300); Phencyclidine Screen,Urine Negative ng/mL (<25)
== END ==
PROVIDERS: Visit Provider Physician Assistant
DX: M51.16 Intervertebral disc disorders with radiculopathy, lumbar region (principal)
CPT/HCPCS: 80305

== ENCOUNTER → 2018-12-08 08:52 | Outpatient (POV) | payer OTHER, SELFPAY ==
[2018-12-08 09:27] VITALS: BP 129/88; PULSE 95; RESP 18; O2SAT 98; BMI 42.7
--- NOTE | 2018-12-08 14:18 | HMH.PAINSOAP ---
[facility] Pain Management SOAP Note Subjective:: Is a pleasant 58-year-old white male who presents today for follow-up. Patient is doing well at this time. Patient has been seen by the patient financial services specialist and got shots in his shoulder he states he is doing much better. Patient states that other than aches and pains that he has from arthritis he is doing well at this time. Patient is currently on Coumadin we did discuss an anti-inflammatory. ROS General: no recent weight change, no fever, no sleep disturbances Respiratory: no cough, no shortness of air, no recurring pulmonary infections Cardiovascular/Peripheral Vascular: No chest pain, No palpitations, no edema, no shortness of breath. Gastrointestinal: no incontinence, normal bowel movements reported Genitourinary: no incontinence Musculoskeletal: Shoulder pain, bilateral hip pain Psychiatric: normal mood/ affect Neurological: [denies weakness in extremities], [denies balance issues] Objective:: Physical Exam General: Alert and oriented x3, no acute distress, pleasant and cooperative, [on room air] Lungs: Resps E/U, Symmetrical chest expansion Eyes: PERRL Musculoskeletal: Flexion and extension of lumbar spine somewhat guarded secondary to pain, deep tendon reflexes normal, strength in upper and lower extremities [5/5], slightly antalgic gait noted Neurological: speech clear, binder technician equal, no gross sensory deficits Assessment:: Shoulder pain, arthritis, sacroiliitis Plan:: I spoke with the Coumadin clinic the recommendation was to try Duexis which has a stomach protectant combination. I gave the patient is sample of this. He is in a call us if it is beneficial for him. We will follow-up with this patient on an as-needed basis. Dr. Peñaloza has reviewed this note and agrees with this plan of care. This note was dictated using voice recognition software and may contain errors or omissions
--- NOTE | 2018-12-08 14:21 | P.CONS_ITS ---
[facility] Pain Management SOAP Note Subjective:: Is a pleasant 58-year-old white male who presents today for follow-up. Patient is doing well at this time. Patient has been seen by the transitional living specialist and got shots in his shoulder he states he is doing much better. Patient states that other than aches and pains that he has from arthritis he is doing well at this time. Patient is currently on Coumadin we did discuss an anti- inflammatory. ROS General: no recent weight change, no fever, no sleep disturbances Respiratory: no cough, no shortness of air, no recurring pulmonary infections Cardiovascular/Peripheral Vascular: No chest pain, No palpitations, no edema, no shortness of breath. Gastrointestinal: no incontinence, normal bowel movements reported Genitourinary: no incontinence Musculoskeletal: Shoulder pain, bilateral hip pain Psychiatric: normal mood/ affect Neurological: [denies weakness in extremities], [denies balance issues] Objective:: Physical Exam General: Alert and oriented x3, no acute distress, pleasant and cooperative, [on room air] Lungs: Resps E/U, Symmetrical chest expansion Eyes: PERRL Musculoskeletal: Flexion and extension of lumbar spine somewhat guarded secondary to pain, deep tendon reflexes normal, strength in upper and lower extremities [5/5], slightly antalgic gait noted Neurological: speech clear, inpatient coder equal, no gross sensory deficits Assessment:: Shoulder pain, arthritis, sacroiliitis Plan:: I spoke with the Coumadin clinic the recommendation was to try Duexis which has a stomach protectant combination. I gave the patient is sample of this. He is in a call us if it is beneficial for him. We will follow-up with this patient on an as-needed basis. Dr. Peñaloza has reviewed this note and agrees with this plan of care. This note was dictated using voice recognition software and may contain errors or omissions
== END ==
PROVIDERS: PCP Physician Assistant; Visit Provider Clinical Nurse Specialist Family Health
DX: M25.519 Pain in unspecified shoulder (principal); M19.90 Unspecified osteoarthritis, unspecified site; M46.1 Sacroiliitis, not elsewhere classified
CPT/HCPCS: 99213

== ENCOUNTER → 2018-12-10 17:56 | Outpatient (CLI) | payer OTHER, SELFPAY ==
[2018-12-10 19:50] LABS: Amphetamine/Metha Screen,Urine Negative ng/mL (<1000); Barbiturates Screen,Urine Negative ng/mL (<200); Benzodiazepines Screen,Urine Negative ng/mL (<200); Cannabinoid Screen,Urine Negative ng/mL (<50); Cocaine Screen,Urine Negative ng/mL (<300); Methadone Screen,Urine Negative ng/mL (<300); Opiate Screen,Urine Negative ng/mL (<300); Phencyclidine Screen,Urine Negative ng/mL (<25)
[2018-12-17 08:25] LABS: Opiates Negative ng/mL (Cutoff=100)
== END ==
PROVIDERS: Visit Provider Physician Assistant
DX: Z79.899 Other long term (current) drug therapy (principal)
CPT/HCPCS: 80305; 80361; G0480

== ENCOUNTER → 2018-12-22 16:46 | Outpatient (CLI) | payer OTHER, SELFPAY ==
[2018-12-22 17:05] LABS: Amphetamine/Metha Screen,Urine Negative ng/mL (<1000); Barbiturates Screen,Urine Negative ng/mL (<200); Benzodiazepines Screen,Urine Negative ng/mL (<200); Cannabinoid Screen,Urine Negative ng/mL (<50); Cocaine Screen,Urine Negative ng/mL (<300); Methadone Screen,Urine Negative ng/mL (<300); Opiate Screen,Urine Negative ng/mL (<300); Phencyclidine Screen,Urine Negative ng/mL (<25)
[2018-12-28 10:07] LABS: Amphetamines Negative (Cutoff=500)
[2018-12-29 08:55] LABS: Opiates Negative ng/mL (Cutoff=100)
== END ==
PROVIDERS: Visit Provider Physician Assistant
DX: Z79.899 Other long term (current) drug therapy (principal)
CPT/HCPCS: 80305; 80324; 80361; G0480

== ENCOUNTER → 2018-12-29 13:01 | Outpatient (CLI) | payer OTHER, SELFPAY | PROVIDERS: PCP Physician Assistant; Visit Provider Internal Medicine | DX: I73.9 Peripheral vascular disease, unspecified (principal); I10 Essential (primary) hypertension; I48.2 Chronic atrial fibrillation; J44.9 Chronic obstructive pulmonary disease, unspecified; Z79.01 Long term (current) use of anticoagulants; E66.01 Morbid (severe) obesity due to excess calories; G47.30 Sleep apnea, unspecified | CPT/HCPCS: 93306 ==

== ENCOUNTER → 2019-01-07 17:23 | Outpatient (CLI) | payer OTHER, SELFPAY ==
[2019-01-07 18:55] LABS: Amphetamine/Metha Screen,Urine Negative ng/mL (<1000); Barbiturates Screen,Urine Negative ng/mL (<200); Benzodiazepines Screen,Urine Negative ng/mL (<200); Cannabinoid Screen,Urine Negative ng/mL (<50); Cocaine Screen,Urine Negative ng/mL (<300); Methadone Screen,Urine Negative ng/mL (<300); Opiate Screen,Urine Negative ng/mL (<300); Phencyclidine Screen,Urine Negative ng/mL (<25)
== END ==
PROVIDERS: Visit Provider Physician Assistant
DX: G89.29 Other chronic pain (principal)
CPT/HCPCS: 80305

== ENCOUNTER → 2019-02-02 11:05 | Outpatient (CLI) | payer OTHER, SELFPAY ==
--- NOTE | 2019-02-02 11:28 | XR_ITS ---
XR tibia fibula RT 2V HISTORY: ITS.REASON: wound ORDERING PHYSICIAN: Felicia Alvarez DPM PATIENT AGE: 58 years COMPARISON: None FINDINGS: Bones: No fracture or dislocation. No lytic or blastic change. There is normal mineralization. Joints: The joint spaces are well-preserved. No significant degenerative/arthritic changes. No erosive changes evident. Soft tissues: Unremarkable. No obvious soft tissue swelling. No obvious effusions. No radio opaque foreign bodies evident. There is faint arterial calcification noted. IMPRESSION: Negative, no acute finding
[2019-02-02 11:57] LABS: Basophils % 0.5 % (0.1-2.0); Eosinophils # 0.2 K/mm3 (0.0-0.4); Eosinophils % 2.7 % (0.1-12.0); Hematocrit 41.3 % (42.0-52.0); Hemoglobin 13.3 g/dL (14.1-18.0); Lymphocytes # 1.2 K/mm3 (0.7-4.5); Lymphocytes % 14.1 % (10-50); Mean Corpuscular HGB Conc 32.3 g/dL (31.8-35.4); Mean Corpuscular Hemoglobin 28.1 pg (27.0-31.2); Mean Corpuscular Volume 86.9 fl (80-94); Mean Platelet Volume 6.4 fl (7.4-10.4); Monocytes # 0.5 K/mm3 (0.1-1.0); Monocytes % 5.7 % (1.7-9.3); Neutrophils # 6.5 K/mm3 (1.8-7.8); Platelet Count 259 K/mm3 (142-424); Red Blood Count 4.75 M/mm3 (4.60-6.20); Red Cell Distribution Width 15.1 % (11.5-17.5); White Blood Count 8.5 K/mm3 (4.8-10.8)
[2019-02-02 12:03] LABS: INR 1.24 (0.9-1.1); Prothrombin Time 12.8 seconds (9.4-11.8)
[2019-02-02 13:18] LABS: Erythrocyte Sedimentation Rate 11 mm/hr (0-20)
[2019-02-02 13:33] LABS: Hemoglobin A1C 6.3 % (0.0-7.0)
[2019-02-02 13:40] LABS: Alanine Aminotransferase 26 U/L (12-78); Albumin Level 3.2 gm/dL (3.4-5.0); Albumin/Globulin Ratio 0.9 (1.1-1.8); Alkaline Phosphatase 97 U/L (46-116); Anion Gap 13.4 mEq/L (5-15); Aspartate Amino Transferase 14 U/L (15-37); Bilirubin,Total 0.5 mg/dL (0.2-1.0); Blood Urea Nitrogen 11 mg/dL (7-18); C-Reactive Protein 4.3 mg/L (0.0-0.9); Calcium 8.6 mg/dL (8.5-10.1); Carbon Dioxide 26 mmol/L (21.0-32.0); Chloride 103 mmol/L (98-107); Creatinine,Serum 0.83 mg/dL (0.70-1.30); Estimated Glomerular Filt Rate 95 ml/min (>60); GFR (African American) 114 ML/MIN (>60); Globulin 3.4 gm/dl (1.3-3.2); Glucose 89 mg/dL (74-106); Potassium 4.4 mmoL/L (3.5-5.1); Sodium 138 mmol/L (136-145); Total Protein,Serum 6.6 gm/dL (6.4-8.2)
== END ==
PROVIDERS: PCP Physician Assistant; Visit Provider Podiatrist
DX: Z51.89 Encounter for other specified aftercare (principal); S81.812A Laceration without foreign body, left lower leg, initial encounter
CPT/HCPCS: 36415; 73590; 80053; 83036; 85025; 85610; 85651; 86140

== ENCOUNTER 2019-02-11 12:36 | Outpatient (CLI) | payer OTHER, SELFPAY | END 2019-02-11 13:50 | disposition home or self-care (01) | LOC: ACC 12:37 | PROVIDERS: PCP Emergency Medicine; Visit Provider Emergency Medicine | DX: Z51.81 Encounter for therapeutic drug level monitoring (principal); Z79.01 Long term (current) use of anticoagulants; I48.91 Unspecified atrial fibrillation | CPT/HCPCS: 85610; 99211; G0463 ==

== ENCOUNTER 2019-02-18 15:46 | Outpatient (CLI) | payer OTHER, SELFPAY ==
[2019-02-19 09:55] LABS: PHA INR Fingerstick 3.2 (0.9-1.1)
== END 2019-02-18 17:00 | disposition home or self-care (01) ==
LOC: ACC 15:46
PROVIDERS: PCP Emergency Medicine; Visit Provider Emergency Medicine
DX: Z51.81 Encounter for therapeutic drug level monitoring (principal); Z79.01 Long term (current) use of anticoagulants; I48.91 Unspecified atrial fibrillation
CPT/HCPCS: 85610; 99211; G0463

== ENCOUNTER → 2019-03-04 18:39 | Outpatient (CLI) | payer OTHER, SELFPAY ==
[2019-03-04 20:08] LABS: Amphetamine/Metha Screen,Urine Negative ng/mL (<1000); Barbiturates Screen,Urine Negative ng/mL (<200); Benzodiazepines Screen,Urine Negative ng/mL (<200); Cannabinoid Screen,Urine Negative ng/mL (<50); Cocaine Screen,Urine Negative ng/mL (<300); Methadone Screen,Urine Negative ng/mL (<300); Opiate Screen,Urine Positive ng/mL (<300); Phencyclidine Screen,Urine Negative ng/mL (<25)
== END ==
PROVIDERS: Visit Provider Physician Assistant
DX: Z79.899 Other long term (current) drug therapy (principal)
CPT/HCPCS: 80305

== ENCOUNTER 2019-03-12 13:09 | Outpatient (CLI) | payer OTHER, SELFPAY | END 2019-03-12 15:56 | disposition home or self-care (01) | LOC: ACC 13:10 | PROVIDERS: PCP Physician Assistant; Visit Provider Physician Assistant | DX: Z51.81 Encounter for therapeutic drug level monitoring (principal); Z79.01 Long term (current) use of anticoagulants; I48.91 Unspecified atrial fibrillation | CPT/HCPCS: 85610; 99211; G0463 ==

== ENCOUNTER → 2019-03-13 16:40 | Outpatient (CLI) | payer OTHER, SELFPAY ==
[2019-03-13 17:48] LABS: Amphetamine/Metha Screen,Urine Negative ng/mL (<1000); Barbiturates Screen,Urine Negative ng/mL (<200); Benzodiazepines Screen,Urine Negative ng/mL (<200); Cannabinoid Screen,Urine Negative ng/mL (<50); Cocaine Screen,Urine Negative ng/mL (<300); Methadone Screen,Urine Negative ng/mL (<300); Opiate Screen,Urine Positive ng/mL (<300); Phencyclidine Screen,Urine Negative ng/mL (<25)
== END ==
PROVIDERS: Visit Provider Nurse Practitioner Family
DX: Z79.899 Other long term (current) drug therapy (principal)
CPT/HCPCS: 80305

== ENCOUNTER → 2019-04-01 18:01 | Outpatient (CLI) | payer OTHER, SELFPAY ==
[2019-04-01 18:59] LABS: Amphetamine/Metha Screen,Urine Negative ng/mL (<1000); Barbiturates Screen,Urine Negative ng/mL (<200); Benzodiazepines Screen,Urine Negative ng/mL (<200); Cannabinoid Screen,Urine Negative ng/mL (<50); Cocaine Screen,Urine Negative ng/mL (<300); Methadone Screen,Urine Negative ng/mL (<300); Opiate Screen,Urine Negative ng/mL (<300); Phencyclidine Screen,Urine Negative ng/mL (<25)
[2019-04-10 19:44] LABS: Opiates Negative ng/mL (Cutoff=100)
== END ==
PROVIDERS: Visit Provider Physician Assistant
DX: Z79.899 Other long term (current) drug therapy (principal)
CPT/HCPCS: 80305; 80361; G0480

== ENCOUNTER → 2019-04-24 14:08 | Outpatient (CLI) | payer OTHER, SELFPAY ==
[2019-04-24 14:37] LABS: Amphetamine/Metha Screen,Urine Negative ng/mL (<1000); Barbiturates Screen,Urine Negative ng/mL (<200); Benzodiazepines Screen,Urine Negative ng/mL (<200); Cannabinoid Screen,Urine Negative ng/mL (<50); Cocaine Screen,Urine Negative ng/mL (<300); Methadone Screen,Urine Negative ng/mL (<300); Opiate Screen,Urine Positive ng/mL (<300); Phencyclidine Screen,Urine Negative ng/mL (<25)
== END ==
PROVIDERS: Visit Provider Nurse Practitioner Family
DX: Z79.899 Other long term (current) drug therapy (principal)
CPT/HCPCS: 80305